=== PATIENT | female | born 1985 | race Caucasian/White ===

== ENCOUNTER 2018-05-07 00:38 | Emergency (ER) | payer OTHER ==
[2018-05-07 00:55] VITALS: BP 122/74; O2SAT 100
--- NOTE | 2018-05-07 01:17 | ERPHSYRPT ---
- History of Present Illness Time Seen by Provider: 05/07/18 01:00 Source: patient Exam Limitations: no limitations Patient Subjective Stated Complaint: pt is alert and oriented. pt is ambulatory with a steady gait. pt states that she has been unable to have a bowel movement since 05/03/18. pt has had intermitent sharp abdominal pains, and mid back pains. pt also states she has had acid reflux. pt states she has been nauseous but not vomited. bowel sounds present x4. no distention noted. pt abdomen is soft and nontender. Triage Nursing Assessment: see above Physician History: 32 y/o white female presents with 3 day h/o constipation. pt has not even past flatus. she has had episodes in the past but typically resolve after one day. she has not vomited but has had heartburn, mild cramping abd pain and bilat lower flank pain. Timing/Duration: day(s) (3) Associated Symptoms: nausea, abdominal pain (mil diffuse cramping), heartburn, loss of appetite, No vomiting, No shortness of breath, No diaphoresis, No cough , No chills, No chest pain, No fever, No headaches, No malaise, No rash, No syncope, No seizure, No weakness Allergies/Adverse Reactions: No Known Drug Allergies Allergy (Unverified 05/07/18 00:54) Home Medications: Diphenhydramine HCl 25 mg [Benadryl 25 mg Capsule] 25 mg PO HS 05/07/18 [ History] Hx Tetanus, Diphtheria Vaccination/Date Given: Yes Immunizations Up to Date: Yes - Review of Systems Constitutional: No Symptoms Eyes: No Symptoms Ears, Nose, & Throat: No Symptoms Respiratory: No Symptoms Cardiac: No Symptoms Abdominal/Gastrointestinal: Abdominal Pain, Nausea, Constipation, No Vomiting, No Diarrhea Genitourinary Symptoms: No Symptoms, No Dysuria, No Frequency, No Hematuria, No Incontinence Musculoskeletal: No Symptoms Skin: No Symptoms Neurological: No Symptoms Psychological: No Symptoms Endocrine: No Symptoms Hematologic/Lymphatic: No Symptoms Immunological/Allergic: No Symptoms All Other Systems: Reviewed and Negative - Past Medical History Pertinent Past Medical History: Yes Neurological History: No Pertinent History ENT History: No Pertinent History Cardiac History: No Pertinent History Respiratory History: No Pertinent History Endocrine Medical History: No Pertinent History Musculoskeletal History: No Pertinent History GI Medical History: No Pertinent History History: No Pertinent History Psycho-Social History: No Pertinent History Female Reproductive Disorders: No Pertinent History - Past Surgical History Past Surgical History: Yes Other Surgical History: cervical leep. - Social History Smoking Status: Never smoker Drug Use: none - Female History Hx Now: No - Nursing Vital Signs Nursing Vital Signs: Initial Vital Signs Temperature 97.3 F 05/07/18 00:39 Pulse Rate 73 05/07/18 00:39 Respiratory Rate 16 05/07/18 00:39 Blood Pressure 122/74 05/07/18 00:39 O2 Sat by Pulse Oximetry 100 05/07/18 00:39 - Physical Exam General Appearance: no apparent distress, alert, anxiety Eye Exam: PERRL/EOMI, eyes nml inspection Ears, Nose, Throat Exam: normal ENT inspection, TMs normal, pharynx normal, moist mucous membranes Neck Exam: normal inspection, non-tender, supple, full range of motion Respiratory Exam: normal breath sounds, lungs clear, airway intact, No chest tenderness, No respiratory distress, No accessory muscle use, No rhonchi, No wheezing Cardiovascular Exam: regular rate/rhythm, normal heart sounds, normal peripheral pulses Gastrointestinal/Abdomen Exam: soft, normal bowel sounds, tenderness (mild diffuse), other (no distension), No guarding, No rebound Pelvic Exam: not done Rectal Exam: not done Back Exam: normal inspection, normal range of motion, No CVA tenderness, No vertebral tenderness Extremity Exam: normal inspection, normal range of motion, pelvis stable Skin Exam: normal color, warm, dry Lymphatic Exam: No adenopathy SpO2 Interpretation: normal SpO2: 100 Oxygen Delivery: Room Air - Course Nursing assessment & vital signs reviewed: Yes Ordered Tests: Active Orders 24 hr Category Date Time Status Clean Catch Urine Specimen STAT Care 05/07/18 01:17 Active HCG,QUALITATIVE URINE Stat Lab 05/07/18 01:18 Completed UA W/RFX UR CULTURE Stat Lab 05/07/18 01:17 Completed Urine Triage Profile Stat Lab 05/07/18 01:17 Completed Medication Summary Discontinued Medications Generic Name Dose Route Start Last Admin Trade Name Freq PRN Reason Stop Dose Admin Bisacodyl 10 mg 05/07/18 01:18 Dulcolax 10 Mg Supp DE 05/07/18 01:19 STAT ONE Magnesium Citrate 296 ml 05/07/18 01:18 05/07/18 01:24 Citroma 296 Ml PO 05/07/18 01:19 296 ml STAT ONE Administration Magnesium Citrate Confirm 05/07/18 01:22 Citroma 296 Ml Administered 05/07/18 01:23 Dose 296 ml .ROUTE .STK-MED ONE Ondansetron HCl 4 mg 05/07/18 01:17 05/07/18 01:25 Zofran Odt 4 Mg PO 05/07/18 01:18 4 mg STAT ONE Administration Ondansetron HCl Confirm 05/07/18 01:22 Zofran Odt 4 Mg Administered 05/07/18 01:23 Dose 4 mg .ROUTE .STK-MED ONE Lab/Rad Data: Laboratory Results 05/07/18 05/07/18 05/07/18 Range/Units 01:18 01:17 01:17 Urine Color YELLOW (YELLOW) Urine Appearance CLEAR (CLEAR) Urine pH 7.0 (5-6) Ur Specific Galvin 1.015 (1.005-1.025) Urine Protein NEGATIVE (Negative) Urine Ketones TRACE (NEGATIVE) Urine Blood MODERATE (0-5) Oren/ul Urine Nitrite NEGATIVE (NEGATIVE) Urine Bilirubin NEGATIVE (NEGATIVE) Urine Urobilinogen 2 (0-1) mg/dL Ur Leukocyte Esterase NEGATIVE (NEGATIVE) Urine WBC (Auto) 0-2 (0-5) /HPF Urine RBC (Auto) 6-10 (0-2) /HPF U Epithel Cells (Auto) RARE (FEW) /HPF Urine Bacteria (Auto) NONE (NEGATIVE) /HPF Urine Mucus (Auto) SLIGHT (NEGATIVE) /HPF Urine Culture Reflexed NO (NO) Urine Glucose NEGATIVE (NEGATIVE) mg/dL Urine HCG, Qual NEGATIVE (Negative) Urine Opiates Level NEGATIVE (NEGATIVE) Ur Methadone NEGATIVE (NEGATIVE) Urine Barbiturates NEGATIVE (NEGATIVE) Ur Phencyclidine (PCP) NEGATIVE (NEGATIVE) Urine Amphetamine NEGATIVE (NEGATIVE) U Benzodiazepine Level NEGATIVE (NEGATIVE) Urine Cocaine NEGATIVE (NEGATIVE) Urine Marijuana (THC) NEGATIVE (NEGATIVE) - Progress Progress: improved, re-examined Progress Note: 05/07/18 02:24 pts abd soft flat benign.good bs. pt states she is now passing flatus. her sx are slowly improving. she wants to go home to use dulcolax supp and will send pt home with fleets enema. Counseled pt/family regarding: diagnosis, need for follow-up - Departure Time of Disposition: 02:27 Departure Disposition: Home Clinical Impression: Constipation Condition: Stable Critical Care Time: No Referrals: KELSI SPENCE MD [Primary Care Provider] - Additional Instructions: drink plenty of fluids. use suppository and enema as discussed. may repeat magnesium citrate, glycerin suppository rectally and fleets enema in 6 to 8 hours. follow up with primary doctor for persistent symptoms
[2018-05-07] MEDS ORDERED: CITROMA 296 ML ONE (01:22)
[2018-05-07] MEDS ORDERED: ZOFRAN ODT 4 MG ONE (01:22)
[2018-05-07] MEDS: CITROMA 296 ML PO ONE (01:24)
[2018-05-07] MEDS: ZOFRAN ODT 4 MG PO ONE (01:25)
[2018-05-07 01:29] LABS: Appearance CLEAR (CLEAR); Bilirubin NEGATIVE (NEGATIVE); Blood MODERATE Ery/ul (0-5); Glucose NEGATIVE (NEGATIVE); Ketones TRACE (NEGATIVE); Leukocyte Esterase NEGATIVE (NEGATIVE); Nitrite NEGATIVE (NEGATIVE); Protein,Urine Dip NEGATIVE (Negative); Specific Gravity 1.015 (1.005-1.025); Urobilinogen 2 mg/dL (0-1)
[2018-05-07 01:42] LABS: Amphetamine,Urine NEGATIVE (NEGATIVE); Barbiturate,Urine NEGATIVE (NEGATIVE); Benzodiazepine,Urine NEGATIVE (NEGATIVE); Cocaine,Urine NEGATIVE (NEGATIVE); Methadone,Urine NEGATIVE (NEGATIVE); Opiate,Urine NEGATIVE (NEGATIVE); PCP,Urine NEGATIVE (NEGATIVE); THC,Urine NEGATIVE (NEGATIVE)
[2018-05-07] MEDS: Dulcolax 10 MG SUPP PR ONE (03:02)
[2018-05-07 03:06] VITALS: PULSE 75
== END 2018-05-07 03:05 | disposition home or self-care (01) ==
LOC: ED 00:38
DX: K59.00 Constipation, unspecified (principal); R11.0 Nausea; R10.9 Unspecified abdominal pain
CPT/HCPCS: 80307; 81001; 84703; 99283; Q0162; A9270-GY

== ENCOUNTER 2019-08-17 12:02 | Emergency (ER) | payer OTHER ==
[2019-08-17 12:33] VITALS: BP 109/74; PULSE 74; O2SAT 98
[2019-08-17] MEDS ORDERED: Rabavert 2.5 UNITS IM ONE (12:58)
--- NOTE | 2019-08-17 13:58 | ERPHSYRPT ---
- History of Present Illness Time Seen by Provider: 08/17/19 12:44 Source: patient Patient Subjective Stated Complaint: Pt slept in a room where a bat was found hanging around Triage Nursing Assessment: Pt came to the ER to be checked out due to sleeping in a room where a bat was found, pt denies being bitten, pt doesn't appear to be in any distress Physician History: 33 years old female presented in the ER after she found her that in the room where she was sleeping with her 2 other kids. No known bite ralph, scratch noticed. He is here for possible exposure prophylaxis. Allergies/Adverse Reactions: No Known Drug Allergies Allergy (Verified 08/17/19 12:33) Home Medications: No Reportable Medications [No Reported Medications] 08/17/19 [History] Hx Tetanus, Diphtheria Vaccination/Date Given: Yes - Review of Systems Constitutional: No Symptoms Eyes: No Symptoms Ears, Nose, & Throat: No Symptoms Respiratory: No Symptoms Cardiac: No Symptoms Abdominal/Gastrointestinal: No Symptoms Genitourinary Symptoms: No Symptoms Musculoskeletal: No Symptoms, Injury Skin: No Symptoms Neurological: No Symptoms Psychological: No Symptoms Endocrine: No Symptoms Hematologic/Lymphatic: No Symptoms Immunological/Allergic: No Symptoms - Past Medical History Pertinent Past Medical History: No Neurological History: No Pertinent History ENT History: No Pertinent History Cardiac History: No Pertinent History Respiratory History: No Pertinent History Endocrine Medical History: No Pertinent History Musculoskeletal History: No Pertinent History GI Medical History: No Pertinent History History: No Pertinent History Psycho-Social History: No Pertinent History Female Reproductive Disorders: No Pertinent History - Past Surgical History Past Surgical History: Yes Other Surgical History: cervical leep. - Social History Smoking Status: Never smoker Exposure to second hand smoke: No Drug Use: none Patient Lives Alone: No - Female History Hx Now: No - Nursing Vital Signs Nursing Vital Signs: Initial Vital Signs Temperature 97.9 F 08/17/19 12:26 Pulse Rate 74 08/17/19 12:26 Blood Pressure 109/74 08/17/19 12:26 O2 Sat by Pulse Oximetry 98 08/17/19 12:26 Pain Scale Pain Intensity 0 - Physical Exam General Appearance: no apparent distress Eye Exam: PERRL/EOMI Ears, Nose, Throat Exam: normal ENT inspection Neck Exam: normal inspection Respiratory Exam: normal breath sounds, lungs clear Cardiovascular Exam: regular rate/rhythm, normal heart sounds Gastrointestinal/Abdomen Exam: soft Back Exam: normal range of motion Extremity Exam: normal inspection, normal range of motion Neurologic Exam: alert, oriented x 3, cooperative Skin Exam: normal color, warm, dry SpO2 Interpretation: normal SpO2: 98 - Course Nursing assessment & vital signs reviewed: Yes Ordered Tests: Medication Summary Discontinued Medications Generic Name Dose Route Start Last Admin Trade Name Freq PRN Reason Stop Dose Admin Rabies Vaccine 2.5 units 08/17/19 12:58 Rabavert 2.5 Units IM 08/17/19 12:59 .ONCE ONE - Progress Progress: unchanged Progress Note: 08/17/19 13:56 She will be given first dose of postexposure prophylaxis rabies vaccine and will schedule for 3 more doses outpatient. Thoroughly counseled. - Departure Departure Disposition: Home Clinical Impression: Need for rabies vaccination Condition: Stable Critical Care Time: No Referrals: KELSI SPENCE MD [Primary Care Provider] - Follow Up with PCP/3 days Instructions: Rabies Vaccine, Rabies (DC) Additional Instructions: Follow-up outpatient for next 3 doses on day 3, 7 and 14 of rabies vaccine. Take protective measures against baths.
== END 2019-08-17 14:58 | disposition home or self-care (01) ==
LOC: ED 12:02
DX: Z20.3 Contact with and (suspected) exposure to rabies (principal); W55.81XA Bitten by other mammals, initial encounter; Y92.003 Bedroom of unspecified non-institutional (private) residence as the place of occurrence of the external cause
CPT/HCPCS: 90675; 99283

== ENCOUNTER 2020-02-08 16:52 | Emergency (ER) | payer OTHER ==
--- NOTE | 2020-02-08 16:58 | ERPHSYRPT ---
- History of Present Illness Time Seen by Provider: 02/08/20 17:04 Source: patient Exam Limitations: no limitations Physician History: This is a 34-year-old white female who is breast-feeding. Approximately 2 weeks ago she had upper left breast mastitis which resolved on its own with expressing her milk and having her child feed through that inflammation/infection. Approximately 2 days ago she noticed tenderness and redness in the underside of her left breast and areole or area. She is having her child feed through this but it is still hurting. She has not had a fever but does have some aches. Timing/Duration: day(s) (2) Severity: mild Associated Symptoms: other (Body aches and pains), No fever Allergies/Adverse Reactions: No Known Drug Allergies Allergy (Verified 02/08/20 17:06) Hx Tetanus, Diphtheria Vaccination/Date Given: Yes Travel Risk - International Travel Have you traveled outside of the country in past 3 weeks: No - Coronavirus Screening Are you exhibiting any of the following symptoms?: No Close contact with a COVID-19 positive Pt in past 14-21 Days: No - Review of Systems Constitutional: No Symptoms Eyes: No Symptoms Ears, Nose, & Throat: No Symptoms Respiratory: No Symptoms Cardiac: No Symptoms Abdominal/Gastrointestinal: No Symptoms Genitourinary Symptoms: No Symptoms Musculoskeletal: Arthralgias, Myalgias Skin: Other (Breast mastitis) Neurological: No Symptoms Psychological: No Symptoms Endocrine: No Symptoms Hematologic/Lymphatic: No Symptoms Immunological/Allergic: No Symptoms All Other Systems: Reviewed and Negative - Past Medical History Pertinent Past Medical History: No Neurological History: No Pertinent History ENT History: No Pertinent History Cardiac History: No Pertinent History Respiratory History: No Pertinent History Endocrine Medical History: No Pertinent History Musculoskeletal History: No Pertinent History GI Medical History: No Pertinent History History: No Pertinent History Psycho-Social History: No Pertinent History Female Reproductive Disorders: No Pertinent History - Past Surgical History Past Surgical History: Yes Neuro Surgical History: No Pertinent History Cardiac: No Pertinent History Respiratory: No Pertinent History Gastrointestinal: No Pertinent History Genitourinary: No Pertinent History Musculoskeletal: No Pertinent History Female Surgical History: No Pertinent History Other Surgical History: cervical leep. - Social History Smoking Status: Never smoker Exposure to second hand smoke: No Drug Use: none Patient Lives Alone: No - Nursing Vital Signs Nursing Vital Signs: Initial Vital Signs Temperature 98.6 F 02/08/20 16:58 Pulse Rate 91 H 02/08/20 16:58 Blood Pressure 107/82 02/08/20 16:58 O2 Sat by Pulse Oximetry 95 02/08/20 16:58 Pain Scale Pain Intensity [Left Lower] 7 Pain Intensity 7 - Physical Exam General Appearance: no apparent distress, alert, anxiety Eye Exam: PERRL/EOMI, eyes nml inspection Ears, Nose, Throat Exam: normal ENT inspection, moist mucous membranes Neck Exam: normal inspection, non-tender, supple, full range of motion Respiratory Exam: airway intact, No chest tenderness, No respiratory distress Gastrointestinal/Abdomen Exam: No tenderness Pelvic Exam: not done Rectal Exam: not done Back Exam: normal inspection, normal range of motion, No CVA tenderness, No vertebral tenderness Extremity Exam: normal inspection, normal range of motion, pelvis stable Neurologic Exam: alert, oriented x 3, cooperative, 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, normal mood/affect, nml cerebellar function, nml station & gait, sensation nml Skin Exam: other (Breast mastitis tenderness and induration in the inferior portion of the left areole.) Lymphatic Exam: No adenopathy SpO2 Interpretation: normal O2 Delivery: Room Air - Course Nursing assessment & vital signs reviewed: Yes Ordered Tests: Medication Summary Discontinued Medications Generic Name Dose Route Start Last Admin Trade Name Virgilio PRN Reason Stop Dose Admin Ceftriaxone Sodium Confirm 02/08/20 17:17 Rocephin 1000 Mg Inj Administered 02/08/20 17:18 Dose 1,000 mg .ROUTE .STK-MED ONE - Progress Progress: pain not gone completely Counseled pt/family regarding: diagnosis, need for follow-up - Departure Departure Disposition: Home Clinical Impression: Acute mastitis of left breast Condition: Stable Critical Care Time: No Referrals: KELSI SPENCE MD [Primary Care Provider] - Additional Instructions: Warm compresses to area 3 times a day but not directly on the skin. Use Tylenol for pain control. Take antibiotics as prescribed. Return to the emergency department if symptoms worsen. Continue breast-feeding. Prescriptions: Cephalexin Mh 500 mg [Keflex 500 mg] 500 mg PO TID #21 capsule
[2020-02-08] MEDS ORDERED: Rocephin 1000 MG INJ IM ONE (17:16)
[2020-02-08] MEDS ORDERED: XYLOCAINE 1% HCL 20 ML MDV ONE (17:17)
[2020-02-08] MEDS ORDERED: Rocephin 1000 MG INJ ONE (17:17)
[2020-02-08 17:40] VITALS: BP 103/71; PULSE 80; O2SAT 98
== END 2020-02-08 17:40 | disposition home or self-care (01) ==
LOC: ED 16:52
DX: N61.0 Mastitis without abscess (principal)
CPT/HCPCS: 96372; 99283; J0696

== ENCOUNTER 2020-04-01 17:19 | Emergency (ER) | payer OTHER ==
--- NOTE | 2020-04-01 18:26 | ERPHSYRPT ---
- History of Present Illness Time Seen by Provider: 04/01/20 17:35 Source: patient Exam Limitations: no limitations Patient Subjective Stated Complaint: pt here for an episode of lightheaded, numbness to both hands and double vision today, feels better after food Triage Nursing Assessment: pt alert, resp easy, waked in , face mask in place, skin w/d/p Physician History: Patient is a 34-year-old female presents to our ED with a transient episode of lightheadedness numbness to hands and feet and blurred vision. Patient states that she had been breast-feeding she had not eaten and felt that her glucose was low. Symptoms occurred just prior to arrival. Patient had a Gatorade and symptoms resolved. Patient is currently asymptomatic. No chest pain or shortness of breath. No nausea or vomiting. No numbness tingling or weakness. No blurred vision or slurred speech no diaphoresis. Patient completely asymptomatic. Patient states that she feels well and does not feel any work-up is necessary at this time. Patient requesting discharge. Patient voices no other complaints concerns at this time. Timing/Duration: today Severity: mild Modifying Factors: Improves With: eating Associated Symptoms: denies symptoms, No vomiting, No abdominal pain, No diaphoresis, No chest pain, No fever, No headaches, No loss of appetite, No syncope, No seizure Allergies/Adverse Reactions: No Known Drug Allergies Allergy (Verified 04/01/20 17:32) Hx Tetanus, Diphtheria Vaccination/Date Given: Yes Hx Influenza Vaccination/Date Given: Yes Hx Pneumococcal Vaccination/Date Given: No Immunizations Up to Date: Yes Travel Risk - International Travel Have you traveled outside of the country in past 3 weeks: No - Coronavirus Screening Are you exhibiting any of the following symptoms?: No Close contact with a COVID-19 positive Pt in past 14-21 Days: No - Review of Systems Constitutional: No Symptoms, No Fever, No Chills Eyes: No Symptoms Ears, Nose, & Throat: No Symptoms Respiratory: No Symptoms, No Cough, No Dyspnea Cardiac: No Symptoms, No Chest Pain, No Edema, No Syncope Abdominal/Gastrointestinal: No Abdominal Pain, No Nausea, No Vomiting, No Diarrhea Genitourinary Symptoms: No Symptoms, No Dysuria Musculoskeletal: No Symptoms, No Back Pain, No Neck Pain Skin: No Symptoms, No Rash Neurological: No Symptoms, No Dizziness, No Focal Weakness, No Sensory Changes Psychological: No Symptoms Endocrine: No Symptoms Hematologic/Lymphatic: No Symptoms Immunological/Allergic: No Symptoms All Other Systems: Reviewed and Negative - Past Medical History Pertinent Past Medical History: No Neurological History: No Pertinent History ENT History: No Pertinent History Cardiac History: No Pertinent History Respiratory History: No Pertinent History Endocrine Medical History: No Pertinent History Musculoskeletal History: No Pertinent History GI Medical History: No Pertinent History History: No Pertinent History Psycho-Social History: No Pertinent History Female Reproductive Disorders: No Pertinent History - Past Surgical History Past Surgical History: Yes Neuro Surgical History: No Pertinent History Cardiac: No Pertinent History Respiratory: No Pertinent History Gastrointestinal: No Pertinent History Genitourinary: No Pertinent History Musculoskeletal: No Pertinent History Female Surgical History: Other Other Surgical History: leap surg - Social History Smoking Status: Never smoker Exposure to second hand smoke: No Drug Use: none Patient Lives Alone: No - Female History Hx Last Menstrual Period: may 2018 Hx Now: No - Nursing Vital Signs Nursing Vital Signs: Initial Vital Signs Temperature 97.5 F 04/01/20 17:32 Pulse Rate 76 04/01/20 17:32 Respiratory Rate 16 04/01/20 17:32 Blood Pressure 132/91 04/01/20 17:32 O2 Sat by Pulse Oximetry 100 04/01/20 17:32 Pain Scale Pain Intensity 0 - Physical Exam General Appearance: no apparent distress, alert Eye Exam: PERRL/EOMI, eyes nml inspection Ears, Nose, Throat Exam: normal ENT inspection, TMs normal, pharynx normal, moist mucous membranes Neck Exam: normal inspection, non-tender, supple, full range of motion Respiratory Exam: normal breath sounds, lungs clear, No respiratory distress Cardiovascular Exam: regular rate/rhythm, normal heart sounds, normal peripheral pulses Gastrointestinal/Abdomen Exam: soft, normal bowel sounds, No tenderness, No mass Pelvic Exam: not done Back Exam: normal inspection, normal range of motion, No CVA tenderness, No vertebral tenderness Extremity Exam: normal inspection, normal range of motion, pelvis stable Neurologic Exam: alert, oriented x 3, cooperative, normal mood/affect, nml cerebellar function, nml station & gait, sensation nml, No motor deficits Skin Exam: normal color, warm, dry, No rash Lymphatic Exam: No adenopathy SpO2 Interpretation: normal SpO2: 100 O2 Delivery: Room Air - Course Nursing assessment & vital signs reviewed: Yes - Progress Progress: improved Progress Note: 04/02/20 06:31 Patient reassessed. She feels well. Repeat neuro exam within normal limits. Patient requesting discharge. Patient declined all work-up. In light of patient's lack of risk factors. Patient's explanation of history of hypoglycemia and not eating or breast-feeding. Symptoms resolving after administration of Gatorade no work-up was performed. We complied with patient's request to forego work-up and discharge home. Patient agrees to follow-up with her primary care doctor within 48 hours for reevaluation. Counseled pt/family regarding: diagnosis, need for follow-up - Departure Departure Disposition: Home Clinical Impression: Dizziness, Encounter for medical screening examination Condition: Stable Critical Care Time: No Referrals: KELSI SPENCE MD [Primary Care Provider] - Instructions: Dizziness, Nonvertigo, (DC) Additional Instructions: Discharge/Care Plan MARTY CHAND was seen on 04/01/20 in the Emergency Room. The patient was counseled regarding Diagnosis,Lab results, Imaging studies, need for follow up and when to return to the Emergency Room. Prescriptions given: Discharge Note I have spoken with the patient and/or caregivers. I have explained the patient's condition, diagnosis and treatment plan based on the information available to me at this time. I have answered the patient's and/or caregiver's questions and addressed any concerns. The patient and/or caregivers have as good understanding of the patient's diagnosis, condition and treatment plan as can be expected at this point. The vital signs have been stable. The patient's condition is stable and appropriate for discharge from the emergency department. The patient will pursue further outpatient evaluation with the primary care physician or other designated or consulting physician as outlined in the discharge instructions. The patient and/or caregivers are agreeable to this plan of care and follow-up instructions have been explained in detail. The patient and/or caregivers have received these instruction. The patient/and or caregivers are aware that any significant change in condition or worsening of symptoms should prompt an immediate return to this or the closest emergency department or call 911.
[2020-04-01 18:30] VITALS: BP 110/77; PULSE 72
[2020-04-02 06:31] VITALS: O2SAT 100
== END 2020-04-01 18:36 | disposition home or self-care (01) ==
LOC: ED 17:19
DX: R42 Dizziness and giddiness (principal); Z13.9 Encounter for screening, unspecified
CPT/HCPCS: 99283

== ENCOUNTER 2025-03-22 21:27 | Emergency (ER) | payer BC ==
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
[2025-03-22 22:06] VITALS: BP 108/76; PULSE 68; RESP 17
[2025-03-22 22:18] VITALS: O2SAT 99
--- NOTE | 2025-03-23 00:09 | XRAY ---
Indication: Left-sided/arm pain and numbness following injury. Comparison: December 03, 2021 PA/lateral chest again demonstrates normal heart and lungs. Bony thorax intact again with minimal levoscoliosis centered at T11. No new/acute findings.
== END 2025-03-22 22:20 | disposition home or self-care (01) ==
LOC: ED 21:27
DX: S20.229A Contusion of unspecified back wall of thorax, initial encounter (principal); S29.8XXA Other specified injuries of thorax, initial encounter; W51.XXXA Accidental striking against or bumped into by another person, initial encounter; Y92.321 Football field as the place of occurrence of the external cause; R20.2 Paresthesia of skin